=== PATIENT | male | born 1995 | race Caucasian/White ===

== ENCOUNTER 2017-02-15 13:31 | Emergency (ER) | payer BC ==
[2017-02-15 14:33] VITALS: BP 122/72
--- NOTE | 2017-02-15 14:36 | UC ---
Ear Complaint HPI - HPI Summary HPI Summary: left ear clogged-decreased hearing, also get periodic sharp stabbing rectal pain ---denies anal penetration - History of Current Complaint Chief Complaint: UCGU Stated Complaint: PLUGGED EAR RECTAL PAIN Time Seen by Provider: 02/15/17 14:17 Hx Obtained From: Patient Onset/Duration: Gradual Onset - left ear pain and decreased hearing Severity Initially: Moderate Severity Currently: Moderate Pain Intensity: 5 Pain Scale Used: 0-10 Numeric - Allergies/Home Medications Allergies/Adverse Reactions: Allergies Allergy/AdvReac Type Severity Reaction Status Date / Time No Known Allergies Allergy Verified 02/15/17 13:41 Home Medications: Home Medications Benadryl PO 50 MG CAP* 50 mg PO WEEKLY 02/15/17 [History Confirmed 02/15/17] busPIRone TAB* [Buspar TAB *] 10 mg PO BID 02/15/17 [History Confirmed 02/15/17] traZODone TAB* 150 mg PO BEDTIME 02/15/17 [History Confirmed 02/15/17] PMH/Surg Hx/FS Hx/Imm Hx Previously Healthy: No Psychological History: Anxiety - Surgical History Surgical History: Yes Surgery Procedure, Year, and Place: wisdom teeth - Family History Known Family History: Positive: None - Social History Occupation: Student Lives: Dormitory/Roommates Alcohol Use: Daily Substance Use Type: None Review of Systems Constitutional: Negative Skin: Negative Eyes: Negative ENT: Negative, Ear Ache - left ear decrease hearing and pain Respiratory: Negative Cardiovascular: Negative Gastrointestinal: Other - rectal pain Genitourinary: Negative Motor: Negative Neurovascular: Negative Musculoskeletal: Negative Neurological: Negative Psychological: Negative Is Patient Immunocompromised?: No All Other Systems Reviewed And Are Negative: Yes Physical Exam Triage Information Reviewed: Yes Appearance: Well-Appearing, No Pain Distress, Well-Nourished Vital Signs: Initial Vital Signs Temp 98.1 F 02/15/17 13:45 Pulse 100 02/15/17 13:45 Resp 22 02/15/17 13:45 Pulse Ox 99 02/15/17 13:45 Vital Signs Reviewed: Yes Eye Exam: Normal Eyes: Positive: Conjunctiva Clear ENT Exam: Normal ENT: Positive: Normal ENT inspection, Hearing grossly normal, Pharynx normal, TMs normal - right, Other: - left ear with cerumen impaction. Negative: Nasal congestion, Nasal drainage, Tonsillar swelling, Tonsillar exudate, Trismus, Muffled/hoarse voice Dental Exam: Normal Neck exam: Normal Neck: Positive: Supple, Nontender Respiratory Exam: Normal Respiratory: Positive: Chest non-tender, No respiratory distress, No accessory muscle use Cardiovascular Exam: Normal Cardiovascular: Positive: RRR, Pulses Normal, Brisk Capillary Refill Abdominal Exam: Normal Abdomen Description: Positive: Nontender, No Organomegaly, Soft, Other: - external exam wnl Bowel Sounds: Positive: Present Musculoskeletal Exam: Normal Musculoskeletal: Positive: Strength Intact, ROM Intact, No Edema Neurological Exam: Normal Neurological: Positive: Alert, Muscle Tone Normal Psychological Exam: Normal Re-Evaluation - Re-Evaluation First Eval Change: Improved - cerumen impaction resolved Ear Complaint Course/Dx - Course Course Of Treatment: Prep H, increase fluids, follow with pcp and or gastroenterology prn - Differential Dx/Diagnosis Provider Diagnoses: Hemmoroids, Left ear cerumen impaction resolved Discharge - Discharge Plan Condition: Stable Disposition: HOME Prescriptions: Hemorrhoidal SUPP* [Preparation H Supp*] 1 supp [place] Q6H PRN #1 box PRN Reason: rectal pain Patient Education Materials: Hydrocortisone (Into the rectum), Cerumen Impaction (ED) Referrals: [facility] [Outside] - If Needed Nirmal Mcclellan MD [Medical Doctor] - If Needed
== END 2017-02-15 15:01 | disposition home or self-care (01) ==
LOC: UCEAST 13:31
DX: H61.22 Impacted cerumen, left ear (principal); K64.9 Unspecified hemorrhoids; F41.9 Anxiety disorder, unspecified
CPT/HCPCS: 99213; G0463

== ENCOUNTER 2018-09-13 20:19 | Emergency (ER) | payer SELFPAY ==
[2018-09-13] MEDS ORDERED: Ondansetron INJ* 2 MG/ML VIAL IV ONE (23:12)
[2018-09-13] MEDS ORDERED: NS 0.9% 1000 ML** 1,000 ML IV ONE (23:12)
[2018-09-13 23:30] LABS: ABS Lymphocytes 1.8 10^3/ul (1.0-4.8); ABS Monocytes 0.7 10^3/ul (0-0.8); Eosinophil % 0.4 %; Hematocrit 47 % (42-52); Hemoglobin 16.2 g/dL (14.0-18.0); Lymphocyte % 18.4 %; Mean Corpuscular HGB Conc 35 g/dL (31-36); Mean Corpuscular Hemoglobin 30 pg (27-31); Mean Corpuscular Volume 86 fL (80-94); Mean Platelet Volume 8.8 fL (7.4-10.4); Platelet Count 149 10^3/uL (150-450); Red Blood Count 5.41 10^6 /uL (4.18-5.48); Red Cell Distribution Width 13 % (10.5-15); White Blood Count 9.5 10^3/uL (3.5-10.8)
[2018-09-13 23:47] LABS: C Reactive Protein 2.01 mg/L (<8.01)
--- NOTE | 2018-09-14 01:22 | ED ---
Nausea/Vomiting/Diarrhea HPI - HPI Summary HPI Summary: Complains of nausea and vomiting 2 times a day 2 days. Nausea described as constant, history of same with no formal diagnosis. Denies fever, cough, sore throat, CP, SOB, diarrhea, abdominal pain, change in urine, change in BM. Medical history is none. - History of Current Complaint Chief Complaint: EDNauseaVomitDiarrh Stated Complaint: UNABLE TO EAT FOR 48 HOURS Time Seen by Provider: 09/13/18 23:10 Hx Obtained From: Patient Onset/Duration: Gradual Onset, Lasting Days Timing: Intermittent Episodes Lasting: Severity Currently: None Pain Intensity: 0 Pain Scale Used: 0-10 Numeric Aggravating Factor(s): Food Alleviating Factor(s): Nothing Nausea/Vomiting Presence: Nauseated, Vomiting Vomiting Frequency: Every 3-4 hours Vomiting Characteristics: Nonbilious Diarrhea Presence: No - Allergies/Home Medications Allergies/Adverse Reactions: Allergies Allergy/AdvReac Type Severity Reaction Status Date / Time lansoprazole Allergy Rash Verified 02/04/18 10:30 PMH/Surg Hx/FS Hx/Imm Hx Endocrine/Hematology History: Denies: Hx Sickle Cell Disease Cardiovascular History: Denies: Hx Myocardial Infarction Respiratory History: Denies: Hx Lung Cancer GI History: Denies: Hx Ileostomy History: Denies: Hx Dialysis Musculoskeletal History: Denies: Hx Osteoporosis Sensory History: Denies: Hx Legally Blind, Hx Deafness Opthamlomology History: Denies: Hx Legally Blind EENT History: Denies: Hx Deafness Neurological History: Denies: Hx Dementia Psychiatric History: Reports: Hx Anxiety, Hx Depression - Surgical History Surgery Procedure, Year, and Place: wisdom teeth - Immunization History Immunizations Up to Date: Yes Infectious Disease History: No Infectious Disease History: Reports: Traveled Outside the [place] in Last 30 Days - [place] Denies: Hx Clostridium Difficile, Hx Hepatitis, Hx Human Immunodeficiency Virus (HIV), Hx of Known/Suspected MRSA, Hx Shingles, Hx Tuberculosis, Hx Known/ Suspected VRE, Hx Known/Suspected VRSA, History Other Infectious Disease - Family History Known Family History: Positive: None - Social History Alcohol Use: Daily Alcohol Amount: vodka Hx Substance Use: Yes Substance Use Type: Reports: Marijuana Substance Use Comment - Amount & Last Used: twice weekly Smoking Status (MU): Never Smoked Tobacco Review of Systems Constitutional: Negative Eyes: Negative ENT: Negative Cardiovascular: Negative Respiratory: Negative Positive: Vomiting, Nausea Genitourinary: Negative Musculoskeletal: Negative Skin: Negative Neurological: Negative Psychological: Normal All Other Systems Reviewed And Are Negative: Yes Physical Exam - Summary Physical Exam Summary: Abdomen soft nontender. Lung sounds clear to auscultation bilaterally. Triage Information Reviewed: Yes Vital Signs On Initial Exam: Initial Vitals Temp Pulse Resp BP Pulse Ox 99.2 F 90 16 134/93 98 09/13/18 20:28 09/13/18 20:28 09/13/18 20:28 09/13/18 20:28 09/13/18 20:28 Vital Signs Reviewed: Yes Appearance: Positive: Well-Appearing Skin: Positive: Warm Head/Face: Positive: Normal Head/Face Inspection Eyes: Positive: Normal ENT: Positive: Normal ENT inspection Neck: Positive: Supple Respiratory/Lung Sounds: Positive: Clear to Auscultation Cardiovascular: Positive: Normal Abdomen Description: Positive: Nontender Musculoskeletal: Positive: Normal Neurological: Positive: Normal Psychiatric: Positive: Normal AVPU Assessment: Alert - [place] Coma Scale Best Eye Response: 4 - Spontaneous Best Motor Response: 6 - Obeys Commands Best Verbal Response: 5 - Oriented Coma Scale Total: 15 Diagnostics - Vital Signs Vital Signs Temp Pulse Resp BP Pulse Ox 09/13/18 22:30 98.9 F 126 16 142/88 99 09/13/18 20:28 99.2 F 90 16 134/93 98 - Laboratory Lab Results: Lab Results 09/13/18 09/13/18 Range/Units 23:13 23:13 WBC 9.5 (3.5-10.8) 10^3/uL RBC 5.41 (4.18-5.48) 10^6 /uL Hgb 16.2 (14.0-18.0) g/dL Hct 47 (42-52) % MCV 86 (80-94) fL MCH 30 (27-31) pg MCHC 35 (31-36) g/dL RDW 13 (10.5-15) % Plt Count 149 L (150-450) 10^3/uL MPV 8.8 (7.4-10.4) fL Neut % (Auto) 73.0 % Lymph % (Auto) 18.4 % [place] % (Auto) 7.8 % Eos % (Auto) 0.4 % Baso % (Auto) 0.4 % Absolute Neuts (auto) 7.0 (1.5-7.7) 10^3/ul Absolute Lymphs (auto) 1.8 (1.0-4.8) 10^3/ul Absolute Monos (auto) 0.7 (0-0.8) 10^3/ul Absolute Eos (auto) 0.0 (0-0.6) 10^3/ul Absolute Basos (auto) 0.0 (0-0.2) 10^3/ul Absolute Nucleated RBC 0.0 10^3/ul Nucleated RBC % 0.0 C-Reactive Protein 2.01 (<8.01) mg/L Amylase 47 (29-103) U/L Lipase 29 (11.0-82.0) U/L Result Diagrams: 09/13/18 23:13 Lab Statement: Any lab studies that have been ordered have been reviewed, and results considered in the medical decision making process. Naus/Vom/Diarrhea Course/Dx - Course Course Of Treatment: Complains of nausea and vomiting 2 times a day 2 days. Nausea described as constant, history of same with no formal diagnosis. Denies fever, cough, sore throat, CP, SOB, diarrhea, abdominal pain, change in urine, change in BM. Medical history is none. Physical exam:Abdomen soft nontender. Lung sounds clear to auscultation bilaterally. Vital signs within normal limits. Labs unremarkable. Patient given 1 L normal saline and Zofran. Patient states he feels much better. Rx for Zofran. - Differential Dx/Diagnosis Provider Diagnosis: Nausea & vomiting Condition At Discharge: Stable Discharge - Sign-Out/Discharge Documenting (check all that apply): Patient Departure Patient Received Moderate/Deep Sedation with Procedure: No - Discharge Plan Condition: Stable Disposition: HOME Prescriptions: Ondansetron ODT TAB* [Zofran 4 MG Odt TAB*] 4 mg PO Q8H PRN 4 Days #14 tab.odt PRN Reason: Nausea Patient Education Materials: Acute Nausea and Vomiting (ED) Referrals: No Primary Care Phys,NOPCP [Primary Care Provider] - Additional Instructions: Take Zofran as directed for nausea. Follow-up with primary care. - Billing Disposition and Condition Condition: STABLE Disposition: Home
[2018-09-14 01:33] VITALS: BP 143/92
== END 2018-09-14 01:33 | disposition home or self-care (01) ==
LOC: ED 20:19
DX: R11.2 Nausea with vomiting, unspecified (principal); F32.9 Major depressive disorder, single episode, unspecified; F41.9 Anxiety disorder, unspecified
CPT/HCPCS: 36415; 82150; 83690; 85025; 86140; 96361; 96374; 99282; J2405